=== PATIENT | female | born 1980 | race American Indian/Alaskan Native ===

== ENCOUNTER 2019-05-18 23:39 | Emergency (ER) | payer SELFPAY ==
--- NOTE | 2019-05-19 04:01 | Emergency Department Report ---
ED General Adult HPI - General Chief complaint: Weakness Stated complaint: FATIGUE/BLOOD TRANSFUSION Time Seen by Provider: 05/19/19 03:29 Source: patient, RN notes reviewed Mode of arrival: Ambulatory Limitations: No Limitations - History of Present Illness Initial comments: Primary care : Adi calvillo This is a pleasant 39-year-old female who is not known to this provider previously. She believes that she has a history of iron deficiency anemia. She reports history of heavy menstruation. She presents to the ER with a complaint of essentially resolved myalgias and arthralgias. Approximately 36 hours ago, she Received 1-2 units of packed red blood cells at [facility]. She does not believe that she had a fever. She has no additional complaints at this time. The myalgias were described in her bilateral forearms, bilateral proximal thighs, arthralgias in her bilateral wrists, and bilateral hips. All of these are now resolved. She has no additional complaints at this time. -: Gradual Location: left, right, upper extremity, lower extremity Radiation: non-radiation Consistency: now resolved Improves with: none Worsens with: none Associated Symptoms: denies other symptoms - Related Data Previous Rx's Medication Instructions Recorded Last Taken Type Naproxen [Naprosyn] 500 mg PO BID #30 tablet 10/28/13 Unknown Rx methOCARBAMOL [Robaxin] 500 mg PO BID #30 tab 10/28/13 Unknown Rx traMADol [Ultram 50 MG tab] 50 mg PO Q6HR PRN #20 tablet 10/28/13 Unknown Rx Allergies Allergy/AdvReac Type Severity Reaction Status Date / Time No Known Allergies Allergy Unverified 10/28/13 00:03 ED Review of Systems ROS: Stated complaint: FATIGUE/BLOOD TRANSFUSION Other details as noted in HPI Comment: All other systems reviewed and negative Genitourinary: other (patient states that she is not . Patient endorses heavy menstruation at baseline.) Musculoskeletal: arthralgia, myalgia ED Past Medical Hx - Past Medical History Hx Hypertension: Yes Additional medical history: SLEEP APNEA - Surgical History Additional Surgical History: CS - Social History Smoking Status: Never Smoker Substance Use Type: Alcohol - Medications Home Medications: Home Medications Medication Instructions Recorded Confirmed Last Taken Type Naproxen [Naprosyn] 500 mg PO BID #30 tablet 10/28/13 Unknown Rx methOCARBAMOL [Robaxin] 500 mg PO BID #30 tab 10/28/13 Unknown Rx traMADol [Ultram 50 MG tab] 50 mg PO Q6HR PRN #20 tablet 10/28/13 Unknown Rx ED Physical Exam - General Limitations: No Limitations, Other (during the entire history and physical examination, patient service coordinator in escorted by Theodore Lynn Owens) General appearance: alert, in no apparent distress - Head Head exam: Present: atraumatic, normocephalic - Eye Eye exam: Present: normal appearance, EOMI. Absent: nystagmus - ENT ENT exam: Present: normal exam, normal orophraynx, mucous membranes moist, normal external ear exam - Neck Neck exam: Present: normal inspection, full ROM. Absent: tenderness - Respiratory Respiratory exam: Present: normal lung sounds bilaterally. Absent: respiratory distress - Cardiovascular Cardiovascular Exam: Present: regular rate, normal rhythm, normal heart sounds. Absent: bradycardia, tachycardia, irregular rhythm, systolic murmur, diastolic murmur, rubs, gallop - GI/Abdominal GI/Abdominal exam: Present: soft. Absent: distended, tenderness, guarding, rebound, rigid, pulsatile mass - Extremities Exam Extremities exam: Present: normal inspection, full ROM, other (2+ pulses noted in the bilateral upper, lower extremities. There is no long bone tenderness. Musculoskeletal compartments are soft. The pelvis is stable.). Absent: pedal edema, calf tenderness - Back Exam Back exam: Present: normal inspection, full ROM. Absent: tenderness, CVA tenderness (R), CVA tenderness (L), paraspinal tenderness, vertebral tenderness - Neurological Exam Neurological exam: Present: alert, oriented X3, normal gait, other (there is no facial droop. The tongue is midline. Extraocular movements are intact bilaterally. Patient speaking in full complete sentences. Shoulder shrug is intact bilaterally. Hearing is grossly intact bilaterally. Visual acuity intact to finger counting and color perception at a close distance. 5/5 strength 4 extremities. Sensation intact to light touch in 4 extremities.). Absent: motor sensory deficit - Psychiatric Psychiatric exam: Present: normal affect, normal mood - Skin Skin exam: Present: warm, dry, intact, normal color. Absent: rash ED Course Vital Signs 05/19/19 05/19/19 04:17 05:13 Temperature 98.0 F Pulse Rate 75 78 Respiratory 18 18 Rate Blood Pressure 152/75 Blood Pressure 115/65 [Left] O2 Sat by Pulse 100 100 Oximetry ED Medical Decision Making - Lab Data Result diagrams: 05/19/19 04:11 05/19/19 04:11 Vital Signs 05/19/19 04:17 Pulse Rate 75 Respiratory 18 Rate Blood Pressure 152/75 O2 Sat by Pulse 100 Oximetry Lab Results 05/19/19 05/19/19 05/19/19 Range/Units 04:11 04:11 04:11 WBC 9.3 (4.5-11.0) K/mm3 RBC 3.94 (3.65-5.03) M/mm3 Hgb 8.4 L (10.1-14.3) gm/dl Hct 27.7 L (30.3-42.9) % MCV 70 L (79-97) fl MCH 21 L (28-32) pg MCHC 30 (30-34) % RDW 31.6 H (13.2-15.2) % Plt Count (140-440) K/mm3 Sodium 138 (137-145) mmol/L Potassium 3.7 (3.6-5.0) mmol/L Chloride 101.1 (98-107) mmol/L Carbon Dioxide 25 (22-30) mmol/L Anion Gap 16 mmol/L BUN 5 L (7-17) mg/dL Creatinine 0.6 L (0.7-1.2) mg/dL Estimated GFR > 60 ml/min BUN/Creatinine Ratio 8 % Glucose 73 (65-100) mg/dL Calcium 8.9 (8.4-10.2) mg/dL Total Bilirubin 0.20 (0.1-1.2) mg/dL AST 21 (5-40) units/L ALT 10 (7-56) units/L Alkaline Phosphatase 52 (35-129) units/L Total Creatine Kinase 43 (30-135) units/L Total Protein 7.6 (6.3-8.2) g/dL Albumin 4.4 (3.9-5) g/dL Albumin/Globulin Ratio 1.4 % HCG, Quant < 2 (0-4) mIU/mL - Medical Decision Making Differential diagnosis, including not limited to: Posttransfusion reaction, nonspecific myalgias, nonspecific arthralgias Assessment and plan: 39-year-old female, who is afebrile with reassuring vital signs, protecting her airway, no crackles, no rales, no cutaneous lesions, with a complaint of resolved myalgias and arthralgias after packed red blood cell transfusion. She does not have any cutaneous manifestations. She appears to be quite comfortable. Screening laboratory studies are essentially unremarkable, not consistent with hemolysis, or any emergent condition at this time. Found to have incidental thrombocytosis. She can follow-up with an outpatient primary care doctor for this. She does not appear to have an emergent medical condition at this time. She is medically suitable to be discharged to follow-up. Critical care attestation.: If time is entered above; I have spent that time in minutes in the direct care of this critically ill patient, excluding procedure time. ED Disposition Clinical Impression: Thrombocytosis, Myalgia, Arthralgia Disposition: TO HOME OR SELFCARE Is pt being admited?: No Does the pt Need Aspirin: No Condition: Stable Additional Instructions: Continue outpatient medications. Modify diet to include plenty of , fiber, green leafy vegetables. Consume lean protein as directed. Exercise caution with iron sulfate tablets and supplementation, they may cause constipation, cramping, and black stool. Laboratory studies showed elevated platelet count. Patient should follow-up with a primary care doctor for this. Recommend follow- up with the primary care doctor within the next month. Return to the emergency room right away with new, worsened, different symptoms, or symptoms not present on the initial emergency room evaluation. She may take [id number] Tylenol, 650 mg, by mouth, every 4 hours, as needed for pain, alternating with Motrin, 400 mg by mouth with food, every 6 hours, as needed for pain and aches. Referrals: [facility] [Provider Group] - 3-5 Days [facility] [Provider Group] - 3-5 Days
[2019-05-19 04:50] LABS: Hematocrit 27.7 % (30.3-42.9); Hemoglobin 8.4 gm/dl (10.1-14.3); Mean Corpuscular HGB Conc 30 % (30-34); Mean Corpuscular Volume 70 fl (79-97); Red Blood Count 3.94 M/mm3 (3.65-5.03)
[2019-05-19 04:58] LABS: Red Cell Distribution Width 31.6 % (13.2-15.2)
[2019-05-19 05:07] LABS: Alanine Aminotransferase 10 units/L (7-56); Albumin 4.4 g/dL (3.9-5); BUN/Creatinine Ratio 8; Blood Urea Nitrogen 5 mg/dL (7-17); Calcium 8.9 mg/dL (8.4-10.2); Hemolysis Index 0
[2019-05-19 05:14] LABS: Bilirubin,Direct < 0.2 mg/dL (0-0.2)
[2019-05-19 05:45] VITALS: BP 110/60
== END 2019-05-19 05:44 | disposition home or self-care (01) ==
LOC: ED 23:39
DX: D47.3 Essential (hemorrhagic) thrombocythemia (principal); I10 Essential (primary) hypertension; G47.30 Sleep apnea, unspecified; Z79.899 Other long term (current) drug therapy
CPT/HCPCS: 36415; 80053; 82247; 82248; 82550; 83615; 84702; 85027; 86850; 86900; 86901

== ENCOUNTER 2019-05-28 23:50 | Emergency (ER) | payer SELFPAY ==
[2019-05-29 00:47] VITALS: BP 148/79
--- NOTE | 2019-05-29 01:51 | Emergency Department Report ---
- General Chief complaint: Vaginal Bleeding Stated complaint: FATIGUE HEAVY CYCLE LIGHT HEADED CHEST TIGHTNESS Time Seen by Provider: 05/29/19 01:43 Source: patient Mode of arrival: Ambulatory Limitations: No Limitations - History of Present Illness Initial comments: Mrs. Noriega is very pleasant 39 yo female with hx of sleep apnea, anemia, ovarian cyst, dysfunctional uterine bleeding who presents with fatigue and lightheadedness. For the past year, she has had heavy almost persistent vaginal bleeding. She was given 2 units of blood at [facility] 2-3 weeks ago. Hemoglobin was 5 at that time. She has OB f/u at [facility]. Denies chest pain, shortness of breath, syncope. Continues to have heavy vaginal bleeding. Physician did not want to use control due to age and risk of clots. MD Complaint: generalized weakness (fatigue, lightheadedness) -: Gradual, week(s) (several) Location: generalized Severity: mild Consistency: constant Improves with: rest Worsens with: none Context: recent illness Associated Symptoms: denies other symptoms - Related Data Previous Rx's Medication Instructions Recorded Last Taken Type Naproxen [Naprosyn] 500 mg PO BID #30 tablet 10/28/13 Unknown Rx methOCARBAMOL [Robaxin] 500 mg PO BID #30 tab 10/28/13 Unknown Rx traMADoL [Ultram 50 MG tab] 50 mg PO Q6HR PRN #20 tablet 10/28/13 Unknown Rx Allergies Allergy/AdvReac Type Severity Reaction Status Date / Time No Known Allergies Allergy Unverified 10/28/13 00:03 ED Review of Systems ROS: Stated complaint: FATIGUE HEAVY CYCLE LIGHT HEADED CHEST TIGHTNESS Other details as noted in HPI Comment: All other systems reviewed and negative Constitutional: denies: chills, fever, malaise Respiratory: denies: cough, shortness of breath Cardiovascular: denies: chest pain Gastrointestinal: denies: abdominal pain, nausea, vomiting Neurological: denies: headache ED Past Medical Hx - Past Medical History Previous Medical History?: Yes Hx Hypertension: Yes Additional medical history: SLEEP APNEA - Surgical History Additional Surgical History: CS - Social History Smoking Status: Never Smoker Substance Use Type: Alcohol - Medications Home Medications: Home Medications Medication Instructions Recorded Confirmed Last Taken Type Naproxen [Naprosyn] 500 mg PO BID #30 tablet 10/28/13 Unknown Rx methOCARBAMOL [Robaxin] 500 mg PO BID #30 tab 10/28/13 Unknown Rx traMADoL [Ultram 50 MG tab] 50 mg PO Q6HR PRN #20 tablet 10/28/13 Unknown Rx ED Physical Exam - General Limitations: No Limitations General appearance: alert, in no apparent distress - Head Head exam: Present: atraumatic, normocephalic - Eye Eye exam: Present: normal appearance - ENT ENT exam: Present: mucous membranes moist - Neck Neck exam: Present: normal inspection, full ROM - Respiratory Respiratory exam: Present: normal lung sounds bilaterally. Absent: respiratory distress, wheezes, rales, rhonchi - Cardiovascular Cardiovascular Exam: Present: regular rate, normal rhythm, normal heart sounds. Absent: systolic murmur, diastolic murmur, rubs, gallop - GI/Abdominal GI/Abdominal exam: Present: soft, normal bowel sounds. Absent: distended, t enderness, guarding, rebound - Neurological Exam Neurological exam: Present: alert, oriented X3 - Psychiatric Psychiatric exam: Present: normal affect, normal mood - Skin Skin exam: Present: warm, dry, intact, normal color. Absent: rash ED Course Vital Signs 05/29/19 00:29 Temperature 98.2 F Pulse Rate 87 Respiratory 18 Rate Blood Pressure 148/79 O2 Sat by Pulse 100 Oximetry ED Medical Decision Making - Lab Data Result diagrams: 05/29/19 01:28 Laboratory Results - last 24 hr 05/29/19 05/29/19 01:28 01:28 WBC 8.5 RBC 3.84 Hgb 8.1 L Hct 26.5 L MCV 69 L MCH 21 L MCHC 30 RDW 30.5 H Plt Count 660 H HCG, Qual Negative - Medical Decision Making Mrs. Noriega presents with dysfunctional uterine bleeding. Her hemoglobin is 8.1 which is near baseline compared to labs obtained 10 days ago. She was given reassurance. She has follow-up with payroll benefits clerk. Recommended iron tablets. Critical care attestation.: If time is entered above; I have spent that time in minutes in the direct care of this critically ill patient, excluding procedure time. ED Disposition Clinical Impression: DUB (dysfunctional uterine bleeding), Anemia Disposition: DC- TO HOME OR SELFCARE Is pt being admited?: No Does the pt Need Aspirin: No Condition: Stable Instructions: Dysfunctional Uterine Bleeding (ED), Anemia (ED) Referrals: [facility] [Outside] - 3-5 Days Forms: Work/School Release Form(ED)
[2019-05-29 02:37] LABS: Hematocrit 26.5 % (30.3-42.9); Hemoglobin 8.1 gm/dl (10.1-14.3); Mean Corpuscular HGB Conc 30 % (30-34); Platelet Count 660 K/mm3 (140-440); Red Blood Count 3.84 M/mm3 (3.65-5.03)
[2019-05-29 02:44] LABS: Mean Corpuscular Volume 69 fl (79-97); Red Cell Distribution Width 30.5 % (13.2-15.2)
[2019-05-29 05:33] LABS: Basophils % (Manual) 0 % (0.0-1.8); Eosinophils % (Manual) 0 % (0.0-4.3); Total Cells Counted 100
[2019-05-29 05:34] LABS: Hypochromasia 2+
[2019-05-29 05:35] LABS: Anisocytosis 3+
[2019-05-29 05:36] LABS: Stomatocytes Rare; Tear Drop Cells Rare
[2019-05-29 05:37] LABS: Large Platelets Rare
[2019-05-29 05:38] LABS: Platelet Estimate Consistent w Auto
== END 2019-05-29 03:05 | disposition home or self-care (01) ==
LOC: ED 23:50
DX: N93.8 Other specified abnormal uterine and vaginal bleeding (principal); D64.9 Anemia, unspecified; I10 Essential (primary) hypertension; Z98.890 Other specified postprocedural states; Z79.899 Other long term (current) drug therapy
CPT/HCPCS: 36415; 84703; 85007; 85025